=== PATIENT | male | born 1985 | race Caucasian/White ===

== ENCOUNTER 2021-09-21 07:28 | Emergency (ER) | payer BC ==
[~2021-09-21] VITALS: Ht 177.8 cm; Wt 81.6 kg
--- NOTE | 2021-09-21 07:29 | NUR ---
BIB PARTNER C/O OF R FOOT PAIN 10/ WOKE UP LAST NIGHT AND FELT TIGHTNESS, DENIES INJURY. VITALS ARE WITHIN NORMAL LIMITS, NO RESP DISTRESS NOTED. DR MERCHANT AT BEDSIDE FOR EVAL.
--- NOTE | 2021-09-21 08:03 | NUR ---
X RAY AT BEDSIDE
[2021-09-21] MEDS: IBUPROFEN 600 MG TABLET PO ONE (08:07)
[2021-09-21] MEDS ORDERED: IBUPROFEN 600 MG TABLET ONE (08:07)
[2021-09-21] MEDS ORDERED: IBUP-1955 PO (08:27)
[2021-09-21 08:32] VITALS: BP 128/81
--- NOTE | 2021-09-21 08:32 | NUR ---
Patient discharged to home in stable condition. Written and verbal after care instructions given. Patient verbalizes understanding of instruction.
== END 2021-09-21 08:33 | disposition home or self-care (01) ==
LOC: ER 07:36
DX: M25.571 Pain in right ankle and joints of right foot (principal)
CPT/HCPCS: 73610-TC

== ENCOUNTER 2021-12-10 08:51 | Emergency (ER) | payer BC ==
[~2021-12-10] VITALS: Ht 177.8 cm; Wt 90.7 kg
[~2021-12-10 08:51] MED LIST: IBUP-1955 PO
[2021-12-10 09:10] VITALS: BP 114/71
[2021-12-10] MEDS ORDERED: IBUPROFEN 400 MG TABLET ONE ×2 (09:57→09:58)
[2021-12-10] MEDS ORDERED: TDAP [DIPH/PERTUSSIS/TET] 0.5 ML VIAL IM ONE ×2 (09:58→10:00)
[2021-12-10] MEDS ORDERED: IBUPROFEN 400 MG TABLET PO ONE (10:00)
[2021-12-10] MEDS ORDERED: DOXY100C2 PO (10:48)
[2021-12-10] MEDS ORDERED: CEPH500C2 PO (10:48)
[2021-12-10] MEDS ORDERED: LEVO750T46 PO (10:48)
--- NOTE | 2021-12-10 10:55 | NUR ---
WOUND CARE DONE AT CHAIR-SIDE
--- NOTE | 2021-12-10 11:06 | NUR ---
Patient discharged to home in stable condition. Written and verbal after care instructions given. Patient verbalizes understanding of instruction.
== END 2021-12-10 11:09 | disposition home or self-care (01) ==
LOC: ER 08:55
DX: S61.432A Puncture wound without foreign body of left hand, initial encounter (principal); W26.0XXA Contact with knife, initial encounter; Y93.89 Activity, other specified; Y92.89 Other specified places as the place of occurrence of the external cause; Y99.8 Other external cause status
CPT/HCPCS: 99283; 90471; 90715; 73130; A6403